=== PATIENT | female | born 1960 | race Caucasian/White ===

== ENCOUNTER 2016-06-03 15:02 | Emergency (ER) | payer OTHER ==
[2016-06-03] MEDS ORDERED: KETOROLAC TROMETHAMINE 30 MG/1ML VIAL IVP ONE (16:11)
[2016-06-03] MEDS ORDERED: 0.9 % SODIUM CHLORIDE 1,000 ML IV ONE (16:11)
--- NOTE | 2016-06-03 17:00 | ED Physician Documentation ---
General Adult - HISTORIAN Historian: patient - HPI Stated Complaint: flank painLLQ pain Chief Complaint: Abdominal Pain Onset: days ago (7) Timing: still present Further Comments: yes (55 yo female presents with 7 day history of LLQ abdominal pain, associated with loose stool. No fever. No recent antibiotic use. No recent hospitalizations. Was seen by her PCP today, who did a UA which showed some blood and was sent to ER for further evaluation.) - ROS CONST: other (abdominal pain) GI/: abdominal pain, nausea, diarrhea NEURO/PSYCH: denies: headache - PAST HX Past History: kidney stones Other History: diabetes Type 2, other (thyroid cancer, diverticulitis) Surgeries/Procedures: cholecystectomy, hysterectomy, other (thyroidectomy, thymus removal) Allergies/Adverse Reactions: Allergies Allergy/AdvReac Type Severity Reaction Status Date / Time codeine Allergy Verified 06/03/16 15:42 doxycycline Allergy Verified 06/03/16 15:42 Home Medications: Ambulatory Orders Medication Instructions Recorded Calcium Carbonate [Calcium] 1,200 mg PO DAILY 06/03/16 Celecoxib 200 mg PO DAILY 06/03/16 Cholecalciferol [Vitamin D-3] 2,000 unit PO DAILY 06/03/16 Dapagliflozin Propanediol [Farxiga] 5 mg PO DAILY 06/03/16 Ferrous Sulfate [Feosol] 325 mg PO DAILY 06/03/16 Fluticasone/Salmeterol [Advair 1 each INH BID 06/03/16 250-50 Diskus] Insulin Detemir [Levemir Flex-Pen] 50 unit SQ HS 06/03/16 Insulin Lispro [Humalog] 20 unit SQ PM 06/03/16 Insulin Lispro [Humalog] 32 unit SQ AC15 06/03/16 Levalbuterol HCl [Xopenex] 0.63 mg IH Q8 06/03/16 Levocetirizine Dihydrochloride 5 mg PO PM 06/03/16 [Xyzal] Levothyroxine Sodium [Synthroid] 50 mcg PO DAILY 06/03/16 Levothyroxine Sodium [Unithroid] 200 mcg PO DAILY 06/03/16 Magnesium Citrate [Citrate of 150 ml PO BID 06/03/16 Magnesia] Metformin HCl [Glucophage] 500 mg PO BID 06/03/16 Metoclopramide HCl [Reglan] 10 mg PO QID 06/03/16 Potassium Chloride [Klor-Con 10] 10 meq PO TID 06/03/16 Ranitidine HCl 150 mg PO BID 06/03/16 Simvastatin [Zocor] 40 mg PO HS 06/03/16 Sulfamethoxazole/Trimethoprim 1 each PO BID #20 tablet 06/03/16 [Bactrim Ds] Tizanidine HCl [Zanaflex] 2 mg PO Q8 PRN 06/03/16 metroNIDAZOLE [Flagyl] 500 mg PO Q6H #40 tablet 06/03/16 - SOCIAL HX Smoking History: non-smoker Alcohol Use: none - FAMILY HX Family History: No - VITAL SIGNS Vital Signs: Vital Signs Temp Pulse Resp BP Pulse Ox 98.7 F 112 H 16 139/76 96 06/03/16 15:14 06/03/16 15:14 06/03/16 15:14 06/03/16 15:14 06/03/16 15:14 - REVIEWED ASSESSMENTS Nursing Assessment Reviewed: Yes Vitals Reviewed: Yes ED Results Lab/Radiology - Radiology Radiology Impressions: HISTORY: 55-year-old female with left flank pain and lower pelvic pain for about 1 week, history of urolithiasis. COMPARISON: None available. TECHNIQUE: Helical CT images of the abdomen and pelvis were performed without contrast. Sagittal and coronal reformatted images were obtained. FINDINGS: Urinary tract: No renal or ureteral calculi, hydronephrosis, or hydroureter. No urinary bladder calculi. Miscellaneous: There are coronary artery calcifications. There are left hilar calcified lymph nodes. There are calcified granulomas in the left lower lobe, liver, and spleen. The liver is enlarged up to 21 cm cephalocaudal. The spleen is borderline enlarged up to 12 cm cephalocaudal. The noncontrast pancreas and adrenal glands are unremarkable. The liver is diffusely fatty infiltrated. The gallbladder is surgically absent. There are multiple mildly prominent lymph nodes in the central mesentery. No abnormal bowel dilatation, free air, or suspicious adenopathy. There is diverticulosis throughout the colon. There is sigmoid colon mild adjacent fat stranding, consistent with acute diverticulitis. The uterus is surgically absent. The appendix is not visualized , and there are no secondary signs of acute appendicitis. There are degenerative changes of the hips and partially visualized spine. IMPRESSION: 1. No urinary tract calculi, hydronephrosis, or hydroureter bilaterally. 2. Extensive colonic diverticulosis with mild fat stranding about the sigmoid colon, consistent with mild acute diverticulitis. 3. Postoperative changes of cholecystectomy, hysterectomy, and possibly also appendectomy. 4. Hepatomegaly and diffuse fatty infiltration of the liver. 5. Old granulomatous disease of the chest, liver, and spleen. Electronically signed on Jun 03, 2016 4:51:12 PM SHIPPING TEAM LEADER by: Elijah Salazar - Orders Orders: ED Orders Category Date Time Status Place Saline Lock/IV Now Care 06/03/16 15:[address] ABD & PELVIS W/O CON Stat Exams 06/03/16 15:51 Taken 0.9 % Sodium Chloride [Normal Saline] 1,000 ml Med 06/03/16 16:11 Active IV Q1H Ketorolac Tromethamine [Toradol] Med 06/03/16 16:11 Discontinued 30 mg IVP NOW ONE General Adult Physical Exam - PHYSICAL EXAM GENERAL APPEARANCE: no distress EENT: eye inspection normal, ENT inspection normal, pharynx normal, BUBBA NECK: normal inspection RESPIRATORY: no resp distress CVS: reg rate & rhythm ABDOMEN: soft, tenderness (LLQ, no rebound tenderness or guarding) EXTREMITIES: non-tender NEURO: oriented X3 Discharge Clincal Impression: Sigmoid diverticulitis Home Medications: Ambulatory Orders Calcium Carbonate [Calcium] 1,200 mg PO DAILY 06/03/16 Celecoxib 200 mg PO DAILY 06/03/16 Cholecalciferol [Vitamin D-3] 2,000 unit PO DAILY 06/03/16 Dapagliflozin Propanediol [Farxiga] 5 mg PO DAILY 06/03/16 Ferrous Sulfate [Feosol] 325 mg PO DAILY 06/03/16 Fluticasone/Salmeterol [Advair 250-50 Diskus] 1 each INH BID 06/03/16 Insulin Detemir [Levemir Flex-Pen] 50 unit SQ HS 06/03/16 Insulin Lispro [Humalog] 20 unit SQ PM 06/03/16 Insulin Lispro [Humalog] 32 unit SQ AC15 06/03/16 Levalbuterol HCl [Xopenex] 0.63 mg IH Q8 06/03/16 Levocetirizine Dihydrochloride [Xyzal] 5 mg PO PM 06/03/16 Levothyroxine Sodium [Synthroid] 50 mcg PO DAILY 06/03/16 Levothyroxine Sodium [Unithroid] 200 mcg PO DAILY 06/03/16 Magnesium Citrate [Citrate of Magnesia] 150 ml PO BID 06/03/16 Metformin HCl [Glucophage] 500 mg PO BID 06/03/16 Metoclopramide HCl [Reglan] 10 mg PO QID 06/03/16 Potassium Chloride [Klor-Con 10] 10 meq PO TID 06/03/16 Ranitidine HCl 150 mg PO BID 06/03/16 Simvastatin [Zocor] 40 mg PO HS 06/03/16 Sulfamethoxazole/Trimethoprim [Bactrim Ds] 1 each PO BID #20 tablet 06/03/16 Tizanidine HCl [Zanaflex] 2 mg PO Q8 PRN 06/03/16 metroNIDAZOLE [Flagyl] 500 mg PO Q6H #40 tablet 06/03/16 Comments: Take antibiotics as prescribed Follow up with PCP in 10 days Clear liquid diet for 2 days, advance as tolerated Condition: Good Disposition: HOME, SELF-CARE Decision to Admit: NO Decision Time: 17:39
[2016-06-03 17:10] LABS: BASOPHILS % 0.5 (0.0-1.5); EOSINOPHILS % 1.6 % (0.0-6.8); LYMPHOCYTES # 2.4 # k/uL (0.6-4.0); MEAN CORPUSCULAR HEMOGLOBIN 27.3 pg (28.0-34.0); MONOCYTES # 0.6 # k/uL (0.0-0.9); MONOCYTES % 5.7 % (0.0-11.0); NEUTROPHILS # 6.4 # k/uL (1.4-7.7)
[2016-06-03 17:22] LABS: eGFR (African) > 60; eGFR (Non-African) > 60
[2016-06-03] MEDS ORDERED: SULFAMETHOXAZOLE/TRIMETHOPRIM 1 EACH TABLET PO ONE ×2 (17:49→17:50)
[2016-06-03] MEDS ORDERED: metroNIDAZOLE 500 MG TABLET PO ONE ×2 (17:49→17:50)
[2016-06-03 18:01] VITALS: BP 132/77
--- NOTE | 2016-06-04 06:19 | Diagnostic Imaging Report ---
Report Submission Date: Jun 03, 2016 4:51:12 PM MANAGER BUSINESS MANAGEMENT Patient ~ Study Name: JAREN STEPHENSON ~ Date: Jun 03, 2016 4:15:36 PM MANAGER BUSINESS MANAGEMENT ~ Modality Type: CT\SR Gender: F ~ Description: CT ABD & PELVIS W/O CO : 64 ~ Institution: [facility] Physician: JAMIE HOOKS ~ ~ ~ ~ HISTORY: ~55-year-old female with left flank pain and lower pelvic pain for about 1 week, history of urolithiasis. COMPARISON: None available. TECHNIQUE: Helical CT images of the abdomen and pelvis were performed without contrast. Sagittal and coronal reformatted images were obtained. FINDINGS: Urinary tract: ~No renal or ureteral calculi, hydronephrosis, or hydroureter. ~ No urinary bladder calculi. Miscellaneous: ~There are coronary artery calcifications. ~There are left hilar calcified lymph nodes. ~There are calcified granulomas in the left lower lobe, liver, and spleen. ~The liver is enlarged up to 21 cm cephalocaudal. ~The spleen is borderline enlarged up to 12 cm cephalocaudal. ~The noncontrast pancreas and adrenal glands are unremarkable. ~The liver is diffusely fatty infiltrated. ~The gallbladder is surgically absent. ~There are multiple mildly prominent lymph nodes in the central mesentery. ~No abnormal bowel dilatation, free air, or suspicious adenopathy. ~There is diverticulosis throughout the colon. ~There is sigmoid colon mild adjacent fat stranding, consistent with acute diverticulitis. ~The uterus is surgically absent. ~The appendix is not visualized, and there are no secondary signs of acute appendicitis. There are degenerative changes of the hips and partially visualized spine. IMPRESSION: 1. ~No urinary tract calculi, hydronephrosis, or hydroureter bilaterally. 2. ~Extensive colonic diverticulosis with mild fat stranding about the sigmoid colon, consistent with mild acute diverticulitis. 3. ~Postoperative changes of cholecystectomy, hysterectomy, and possibly also appendectomy. 4. ~Hepatomegaly and diffuse fatty infiltration of the liver. 5. ~Old granulomatous disease of the chest, liver, and spleen. ~ Electronically signed on Jun 03, 2016 4:51:12 PM MANAGER BUSINESS MANAGEMENT by: Elijah HERRERA
== END 2016-06-03 17:50 | disposition home or self-care (01) ==
LOC: ED 15:02
DX: K57.32 Diverticulitis of large intestine without perforation or abscess without bleeding (principal)
CPT/HCPCS: 74176; 80048; 85025; A9270; J7030; 96374; 99283; S1016

== ENCOUNTER 2016-10-07 08:57 | Day surgery (SDC) | payer OTHER ==
--- NOTE | 2016-10-07 15:14 | Operative Note ---
SURGEON: Camilo Hermosillo MD ANESTHESIA: MAC anesthesia. ESTIMATED BLOOD LOSS: None. COMPLICATIONS: None. FINDINGS: 1. Poor prep. 2. A small sessile polyp in the sigmoid. 3. Moderate diverticulosis. PREOPERATIVE DIAGNOSIS: History of colon polyps. POSTOPERATIVE DIAGNOSES: 1. Colon polyp. 2. Diverticulosis. PROCEDURE PERFORMED: Colonoscopy to cecum with polypectomy. DESCRIPTION OF PROCEDURE: The patient was brought to the endoscopy suite and placed in the left lateral decubitus position. Rectal exam was performed which was normal. The colonoscope was inserted and passed to the cecum. The prep was poor, though decent visualization was gained with extensive washing. The colonoscope was slowly retracted being careful to inspect all macias. There was a very small polyp in the sigmoid which was removed with a cold biopsy. There was rather extensive diverticulosis in the sigmoid colon. The colonoscope was removed. The patient tolerated the procedure well. DISPOSITION: I recommend to repeat colonoscopy in 5 years due to the polyp and the poor prep. cc: Dr. Juan HERRERA
== END 2016-10-07 09:00 ==
LOC: OPSURG 08:57
PROVIDERS: ATTEND Colon & Rectal Surgery
DX: Z12.11 Encounter for screening for malignant neoplasm of colon (principal); D12.5 Benign neoplasm of sigmoid colon; K57.30 Diverticulosis of large intestine without perforation or abscess without bleeding
CPT/HCPCS: 45385; 88305; J2704; J7120; S1016

== ENCOUNTER 2018-06-06 13:52 | Outpatient (CLI) | payer MEDICARE, OTHER ==
[2018-06-06 14:20] LABS: MEAN CORPUSCULAR HEMOGLOBIN 31.1 pg (28.0-34.0)
[2018-06-06 14:21] LABS: BASOPHILS % 0.4 (0.0-1.5); EOSINOPHILS % 2.4 % (0.0-6.8); MONOCYTES % 6.8 % (0.0-11.0); NEUTROPHILS # 6.1 # k/uL (1.4-7.7)
[2018-06-06 14:54] LABS: eGFR (Non-African) > 60
== END 2018-06-06 13:53 ==
LOC: LAB 13:52
PROVIDERS: ATTEND Internal Medicine Gastroenterology
DX: K74.60 Unspecified cirrhosis of liver (principal)
CPT/HCPCS: 36415; 80053; 85025

== ENCOUNTER 2018-07-06 09:52 | Outpatient (CLI) | payer MEDICARE, OTHER ==
--- NOTE | 2018-07-06 13:16 | Diagnostic Imaging Report ---
LAWRENCE HOPSON [facility] [address] [address] Report Submission Date: Jul 06, 2018 10:55:18 AM AVIATION SUPPORT EQUIPMENT REPAIRER Patient Study Name: JAREN STEPHENSON Date: Jul 06, 2018 12:00:00 AM AVIATION SUPPORT EQUIPMENT REPAIRER Modality Type: DEXA\OT Gender: F Description: DEXA : 64 Institution: [facility] Physician: LAWRENCE HOPSON Examination: Bone density History: Assess bone mineralization Comparison exams: None available Technique: DEXA protocol Findings: Average bone mineral density from L1 through L4: 1.168 grams cm2. T score: -0.1 Average bone mineral density of the left femoral neck: 1.090 grams cm2. T score: 0.7 Average bone mineral density of the right femoral neck: 1.115 grams cm2. T score: 0.8 Impression: Normal lumbar spine and hip mineralization for age Electronically signed on Jul 06, 2018 10:55:18 AM AVIATION SUPPORT EQUIPMENT REPAIRER by: Jadon HERRERA
== END 2018-07-06 09:54 ==
LOC: RAD 09:52
PROVIDERS: ATTEND Family Medicine
DX: Z78.0 Asymptomatic menopausal state (principal)
CPT/HCPCS: 77080